=== PATIENT | female | born 1980 | race Caucasian/White ===

== ENCOUNTER 2017-05-31 05:53 | Day surgery (SDC) | payer OTHER, MEDICAID ==
--- NOTE | 2017-05-27 14:51 | GHP ---
[f rep st] HISTORY AND PHYSICAL ANTICIPATED DATE OF PROCEDURE: 05/31/2017 ADMITTING DIAGNOSIS: Displaced intrauterine device strings. HISTORY OF PRESENT ILLNESS: Patient is a 36-year-old, 2, para 2-0-0-2, who presented to my office to have her Paragard IUD removed. She had her primary care physician try but there were no strings visible on exam. Pelvic ultrasound was done and revealed IUD in good position within the uterus as well as multiple uterine fibroids. Patient does have regular cycles 4-7 days. Denies any cramping. No intermenstrual bleeding noted. just got a vasectomy and this is the reason she wants the IUD removed. IUD was attempted to be removed in my office. We attempted removal of IUD several times with different instruments and was unsuccessful. Discussed removing IUD under ultrasound guidance versus in the operating room under anesthesia. Patient was uncomfortable during the exam and desires anesthesia for removal. Surgery is scheduled for 05/31/2017. PAST OBSTETRICAL HISTORY: In 2004, she had an uncomplicated vaginal delivery in [place]. In 2006, had a section in [place], complicated by varicose veins in the vulvar area. PAST GYNECOLOGICAL HISTORY: Age of menarche 13. Cycles every 28 days for 3-7 days. Moderate flow, light cramping. Patient denies a history of abnormal Pap smears and denies exposure to any sexually transmitted diseases. PAST MEDICAL HISTORY: Hypertension. PAST SURGICAL HISTORY: Appendicitis, section. MEDICATIONS: Unknown blood pressure medication. ALLERGIES: No known drug allergies. SOCIAL HISTORY: Patient is . She lives with her and their 2 children. She is a community mental health worker. Denies any alcohol, tobacco, or illicit drug use. FAMILY HISTORY: Mother with migraine headaches and hypertension. REVIEW OF SYSTEMS: 10-point review of systems is negative except positive pertinent's noted in HPI. PHYSICAL EXAMINATION: VITAL SIGNS: Afebrile. Stable. CONSTITUTIONAL: Well- nourished, well-developed female, alert and oriented x3 in no apparent distress. CARDIOVASCULAR: Regular rate and rhythm. LUNGS: Clear to auscultation bilaterally. ABDOMEN: Soft, nontender, nondistended. PELVIC: Grossly normal female genitalia. IUD strings were not visualized. On bimanual exam, the uterus is enlarged, 10 week size, irregular shape, with multiple fibroids. EXTREMITIES: Normal to inspection without calf tenderness or edema. ASSESSMENT: Patient is a 36-year-old, 2, para 2-0-0-2, with displaced intrauterine device strings; unable to be removed in the office. PLAN: 1. Admit to hospital for surgical preop visit. 2. Will sign consents at bedside. 3. Antibiotics senior radiation protection technician to OR. 4. SCDs for DVT prophylaxis. /[id number]/MODL MTDD
[2017-05-31] MEDS ORDERED: ceFAZolin 2 GM/DEXTROSE 100 ML IV ONE (06:02)
[2017-05-31] MEDS ORDERED: LR 1,000 ML IV SCH (06:02)
[2017-05-31] MEDS ORDERED: LIDOCAINE 1% 2 ML INJ ID PRN (06:13)
[2017-05-31] MEDS ORDERED: LR 1,000 ML IV ONE (06:13)
[2017-05-31] MEDS ORDERED: LIDOCAINE 1% 300 MG/30 ML SDV ONE (06:50)
[2017-05-31] MEDS ORDERED: SILVER NITRATE APPLICATOR 1 APPL TP ONE (06:51)
[2017-05-31] MEDS ORDERED: MIDAZOLAM 2 MG/2 ML VIAL IVP ONE (06:59)
--- NOTE | 2017-05-31 07:00 | PDANEPAE ---
ANE History of Present Illness iud ANE Past Medical History - Cardiovascular History Hx Hypertension: Yes Hx Arrhythmias: No Hx Chest Pain: No Hx Coronary Artery / Peripheral Vascular Disease: No Hx CHF / Valvular Disease: No Hx Palpitations: No Cardiovascular History Comment: pcp monitors bp medications - Pulmonary History Hx COPD: No Hx Asthma/Reactive Airway Disease: No Hx Recent Upper Respiratory Infection: No Hx Oxygen in Use at Home: No Hx Sleep Apnea: No Sleep Apnea Screening Result - Last Documented: Negative - Neurologic History Hx Cerebrovascular Accident: No Hx Seizures: No Hx Dementia: No - Endocrine History Hx Diabetes: No - Renal History Hx Renal Disorders: No - Liver History Hx Hepatic Disorders: No - Neurological & Psychiatric Hx Hx Neurological and Psychiatric Disorders: No - Cancer History Hx Cancer: No - Congenital Disorder History Hx Congenital Disorders: No - GI History Hx Gastrointestinal Disorders: No - Other Health History Other Health History: dental braces - Chronic Pain History Chronic Pain: No - Surgical History Prior Surgeries: appy. x1 ANE Review of Systems - Exercise capacity METS (RN): 4 METS ANE Patient History - Allergies Allergies/Adverse Reactions: No Known Allergies Allergy (Verified 05/19/17 14:24) - Home Medications Home Medications: Losartan/Hctz 50/12.5 05/19/17 [Last Taken 05/30/17] - NPO status NPO Status: no food or drink >8 hours - Anes Hx Anes Hx: no prior problems - Smoking Hx Smoking Status: Never smoked - Family Anes Hx Family Hx Anesthesia Complications: none ANE Labs/Vital Signs - Vital Signs Height: 170.18 cm Weight: 68.039 kg ANE Physical Exam - Airway Mallampati Score: Class 2 Mouth exam: normal dental/mouth exam - Pulmonary Pulmonary: no respiratory distress - Cardiovascular Cardiovascular: regular rate and rhythym - ASA Status ASA Status: II ANE Anesthesia Plan Anesthesia Plan: GA w LMA
[2017-05-31] MEDS ORDERED: DEXAMETHASONE 4 MG/ML VIAL ONE (07:05)
[2017-05-31] MEDS ORDERED: KETOROLAC 30 MG/1 ML SDV ONE (07:05)
[2017-05-31] MEDS ORDERED: ONDANSETRON 4 MG/2 ML VIAL ONE (07:05)
[2017-05-31] MEDS ORDERED: LIDOCAINE 2% 5 ML SDV ONE (07:06)
[2017-05-31] MEDS ORDERED: PROPOFOL 200 MG/20 ML VIAL ONE (07:07)
[2017-05-31] MEDS ORDERED: fentaNYL 100 MCG/2 ML INJ ONE (07:07)
--- NOTE | 2017-05-31 07:16 | PDHPUP ---
History & Physical Update H&P update statement: This history and physical update is based on an assessment of the patient which was completed after admission or registration (within 24 hours), but prior to the surgery/procedure. H&P update: H&P reviewed & patient examined, no change in patient's condition since H&P completed
[2017-05-31] MEDS ORDERED: LR 500 ML IV PRN (07:42)
[2017-05-31] MEDS ORDERED: ONDANSETRON 4 MG/2 ML VIAL IVP PRN (07:42)
[2017-05-31] MEDS ORDERED: HYDROmorphONE/DILAUDID 1 MG/ML SYR IVP PRN (07:42)
[2017-05-31] MEDS ORDERED: MEPERIDINE 25 MG/ML SYR IVP PRN (07:42)
[2017-05-31] MEDS ORDERED: NALOXONE HCL 0.4 MG/ML INJ IVP PRN (07:42)
[2017-05-31] MEDS ORDERED: fentaNYL 100 MCG/2 ML INJ IVP PRN (07:42)
--- NOTE | 2017-05-31 07:54 | POSTOPPROG ---
Post Op Note Date of Operation: 05/31/17 Surgeon: Nora Cain Graphic Editor: None Anesthesiologist: Dr. Ke Barnhart Anesthesia: LMA Pre-op Diagnosis: Missing IUD strings; unable to be removed in office Post-op Diagnosis: Missing IUD strings; unable to be removed in office Indication: 36 y/o w/ IUD in place, unable to be removed in office, missing string Procedure: Removal of IUD Findings: Uterus sounded to 7 cm; no IUD strings visualized. IUD intact, w/ no string Inf/Abcess present in the surg proc area at time of surgery?: No Depth: Superfical (Skin SQ) EBL: Minimal (<5 cc) Total fluids administered: 500 cc UO: 100 cc clear urine by red rubber after Complications: None Specimen(s): None
--- NOTE | 2017-05-31 08:07 | POSTANESTH ---
Post Anesthetic Evaluation Cardiovascular Status: Normal, Stable Respiratory Status: Normal, Stable Level of Consciousness/Mental Status: Can Participate in Eval Pain Control: Adequate, Prn Tx Ordered Nausea/Vomiting Control: Adequate, Prn Tx Ordered Complications Possibly Related to Anesthesia: None Noted
[2017-05-31 08:11] VITALS: PULSE 66
[2017-05-31 08:49] VITALS: TEMP 97.7
[2017-05-31 10:02] VITALS: BP 145/96; RESP 13; O2SAT 96
--- NOTE | 2017-06-01 05:10 | GOP ---
[f rep st] OPERATIVE REPORT DATE OF OPERATION: 05/31/2017 SURGEON: Nora Cain DO LOCKET MAKER: None. ANESTHESIA: LMA. ANESTHESIOLOGIST: Ke Barnhart MD. PREOPERATIVE DIAGNOSIS: 1. Missing IUD strings. 2. IUD unable to be removed in office. POSTOPERATIVE DIAGNOSIS: 1. Missing IUD string. 2. IUD unable to be removed in office. PROCEDURE PERFORMED: Removal of intrauterine device. FINDINGS: Uterus sounded to 7 cm. No IUD strings were visualized. IUD was removed intact, but no strings were seen. IUD was sent to pathology per protocol. ESTIMATED BLOOD LOSS: Less than 5 cc. INDICATIONS: Patient is a 36-year-old, 2, para 2, with a Mirena IUD in place. The patient's is getting a vasectomy and she would like to have the IUD removed. She presented to her primary care physician's office. The IUD strings were not visualized on exam and the IUD was unable to be removed in the office. Ultrasound did demonstrate IUD in the proper location within the uterus. Patient then came to see me in the office. We attempted to remove the IUD multiple times without success. The patient did not tolerate the procedure. We discussed having the procedure done under anesthesia. Patient agrees. Surgical consents were obtained. Risks, benefits, alternatives were reviewed with the patient including bleeding, infection, risk of uterine perforation. The patient understands all risks at this time wants to proceed with surgery. DESCRIPTION OF PROCEDURE: The patient was taken to the operating room, where anesthesia was obtained without difficulty. Patient was placed in dorsal lithotomy position, prepped and draped in normal sterile fashion. At this time , an open-sided speculum was placed in the vagina. The anterior lip of the cervix were grasped with a single-tooth tenaculum. Findings noted above. Again , no IUD strings were seen. At this time, a Stacey clamp was advanced into the uterus to remove the IUD. This was done 3 times until the IUD was removed successfully. The IUD was intact, but no strings were visualized. Minimal bleeding was noted. All instruments were removed from the vagina. Again, hemostasis was noted. Patient tolerated the procedure well. There were no complications. Sponge and instrument counts correct x2. The patient was then taken out of dorsal lithotomy position awakened, taken recovery room in stable condition. IV FLUIDS: 500 cc LR. URINE OUTPUT: 100 cc of clear urine by red rubber after the procedure. /[id number]/MODL MTDD
== END 2017-05-31 09:50 | disposition home or self-care (01) ==
LOC: FSGY 05:53
PROVIDERS: ATTEND Obstetrics & Gynecology
PROC: 0UPD7HZ Removal of Contraceptive Device from Uterus and Cervix, Via Natural or Artificial Opening (ICD-10-PCS; principal; 2017-05-31 07:15)
DX: T83.32XA Displacement of intrauterine contraceptive device, initial encounter (principal); I10 Essential (primary) hypertension
CPT/HCPCS: J0690; J1100; J1885; J2250; J2405; J2704; J3010

== ENCOUNTER → 2017-10-01 | Outpatient (CLI) | payer OTHER ==
[~2017-10-01] MED LIST: IOPAMIDOL (ISOVUE 370) 100 ML BTL IV ONE
== END ==
LOC: FIMAGING 14:43
PROVIDERS: ATTEND Physician Assistant Medical
DX: R94.39 Abnormal result of other cardiovascular function study (principal)
CPT/HCPCS: Q9967

== ENCOUNTER → 2018-02-03 | Outpatient (CLI) | payer OTHER, MEDICAID | LOC: CIMAGING 12:49 | PROVIDERS: ATTEND Family Medicine | DX: S82.65XA Nondisplaced fracture of lateral malleolus of left fibula, initial encounter for closed fracture (principal) | CPT/HCPCS: 73630-PO ==